=== PATIENT | female | born 1985 | race Caucasian/White ===

== ENCOUNTER 2018-08-14 08:20 | Emergency (ER) | payer OTHER ==
[~2018-08-14] VITALS: Ht 154.9 cm; Wt 64.0 kg
[~2018-08-14 08:20] MED LIST: IBUP-1542 PO; ONDA4TAB35 PO
[2018-08-14 08:23] VITALS: BP 121/76; PULSE 84; RESP 16; Ht 154.9 cm; Wt 64.0 kg
[2018-08-14] MEDS ORDERED: ONDANSETRON (ODT) 4 MG TAB ODT STA (08:56)
[2018-08-14] MEDS ORDERED: FAMOTIDINE 20 MG TAB PO ONE (09:00)
[2018-08-14] MEDS ORDERED: LIDOCAINE/MYLANTA 40 ML BTL PO ONE (09:00)
[2018-08-14] MEDS ORDERED: ESOM20CA PO (11:30)
[2018-08-14] MEDS ORDERED: SULF1TAB31 PO (11:30)
--- NOTE | 2018-08-14 11:41 | ERD ---
ER Documentation Chief Complaint Chief Complaint pt is bib family with c/o epigastric /abd pain starting last night HPI This is a 33-year-old female patient who presents to the emergency room with complaint of nausea without vomiting and epigastric pain since last night. States pain radiates to her back and into left chest. Denies alcohol use. History of GERD. No recent travel, no prolonged immobilization, no hormonal use. No chronic medical problems. ROS All systems reviewed and are negative except as per history of present illness. Medications Home Meds Active Scripts Sulfamethoxazole/Trimethoprim* (Bactrim Ds* Tablet) 1 Each Tablet, 1 TAB PO BID for cystitis for 3 Days, #6 TAB Prov:KATHARINE CABRERA NP 08/14/18 Esomeprazole Mag Trihydrate (Nexium) 20 Mg Capsule.dr, 20 MG PO BID for dypepsia for 30 Days, #60 CAP Prov:KATHARINE CABRERA NP 08/14/18 Ibuprofen* (Motrin*) 600 Mg Tab, 600 MG PO Q6H PRN for PAIN AND OR ELEVATED TEMP, #30 Prov:EDGAR CHACON NP 12/08/14 Ondansetron Hcl* (Zofran* ODT) 4 mg -ODT Tab.disper, 4 MG PO Q6 PRN for NAUSEA AND/OR VOMITING, #10 TAB Prov:EDGAR CHACON NP 12/08/14 Allergies Allergies: Coded Allergies: Penicillins (Verified Allergy, Unknown, 08/14/18) PMhx/Soc Medical and Surgical Hx: pt denies Surgical Hx Hx Alcohol Use: No Hx Substance Use: No Hx Tobacco Use: Yes (hookah) Smoking Status: Current some day smoker FmHx Family History: No diabetes, No coronary disease, No other Physical Exam Vitals Vital Signs Date Temp Pulse Resp B/P (MAP) Pulse Ox O2 O2 Flow FiO2 Time Delivery Rate 08/14/18 98.3 84 16 121/76 97 08:23 (91) Physical Exam Const: No acute distress Head: Atraumatic Eyes: Normal Conjunctiva, perrl ENT: Normal External Ears, Nose and Mouth. Pharynx pink, moist, no pe techiae, lesions Neck: Full range of motion. No meningismus. Lymphadenopathy Resp: Clear to auscultation bilaterally Cardio: Regular rate and rhythm, no murmurs Abd: Soft, non tender, non distended. Normal bowel sounds. Tender at epigastrium Skin: No petechiae or rashes Back: No midline or flank tenderness Ext: No cyanosis, or edema Neur: Awake and alert Psych: Normal Mood and Affect Result Diagram: 08/14/1817 08/14/18 0917 Results 24 hrs Laboratory Tests Test 08/14/18 09:17 08/14/18 09:18 White Blood Count 15.6 10^3/ul Red Blood Count 4.94 10^6/ul Hemoglobin 14.4 g/dl Hematocrit 42.5 % Mean Corpuscular Volume 86.0 fl Mean Corpuscular Hemoglobin 29.1 pg Mean Corpuscular Hemoglobin Concent 33.9 g/dl Red Cell Distribution Width 12.4 % Platelet Count 310 10^3/UL Mean Platelet Volume 10.2 fl Immature Granulocytes % 0.400 % Neutrophils % 82.2 % Lymphocytes % 11.9 % Monocytes % 4.4 % Eosinophils % 0.7 % Basophils % 0.4 % Nucleated Red Blood Cells % 0.0 /100WBC Immature Granulocytes # 0.070 10^3/ul Neutrophils # 12.8 10^3/ul Lymphocytes # 1.9 10^3/ul Monocytes # 0.7 10^3/ul Eosinophils # 0.1 10^3/ul Basophils # 0.1 10^3/ul Nucleated Red Blood Cells # 0.0 10^3/ul Sodium Level 141 mmol/L Potassium Level 3.8 mmol/L Chloride Level 105 mmol/L Carbon Dioxide Level 28 mmol/L Anion Gap 8 Blood Urea Nitrogen 16 mg/dl Creatinine 0.50 mg/dl Est Glomerular Filtrat Rate mL/min > 60 mL/min Glucose Level 98 mg/dl Calcium Level 9.4 mg/dl Total Bilirubin 0.5 mg/dl Direct Bilirubin 0.00 mg/dl Indirect Bilirubin 0.5 mg/dl Aspartate Amino Transf (AST/SGOT) 21 IU/L Alanine Aminotransferase (ALT/SGPT) 24 IU/L Alkaline Phosphatase 46 IU/L Troponin I < 0.012 ng/ml Total Protein 8.1 g/dl Albumin 4.5 g/dl Globulin 3.60 g/dl Albumin/Globulin Ratio 1.25 Lipase 37 U/L Bedside Urine pH (LAB) 8.5 Bedside Urine Protein (LAB) 1+ Bedside Urine Glucose (UA) Negative Bedside Urine Ketones (LAB) 1+ Bedside Urine Blood Negative Bedside Urine Nitrite (LAB) Negative Bedside Urine Leukocyte Esterase (L 1+ POC Beta HCG, Qualitative NEGATIVE Current Medications Medications Dose Sig/Cayla Start Time Status Last (Trade) Ordered Route PRN Stop Time Admin Dose Reason Admin 40 ml ONCE ONCE 08/14/18 DC 08/14/18 Miscellaneous PO 09:00 09:27 Medication 08/14/18 09:04 (Gi Cocktail (2)) Famotidine 20 mg ONCE ONCE 08/14/18 DC 08/14/18 (Pepcid) PO 09:00 09:26 08/14/18 09:04 Ondansetron 4 mg ONCE STAT 08/14/18 DC 08/14/18 HCl (Zofran ODT 08:56 09:18 Odt) 08/14/18 09:04 Procedures/MDM This is a 33-year-old female who presents to emergency room with epigastric pain. ED COURSE: The patient was stable throughout ED course. I kept the patient and/or family informed of laboratory and diagnostic imaging results throughout the ED course. EKG: Read by Dr. Farrell, attending physician. EKG shows normal sinus rhythm at a rate of 69 bpm. No arrhythmias, acute ST elevations or T wave changes were noted. MEDICATIONS GIVEN: GI cocktail, Zofran Patient tolerated medication well with no adverse reactions. Patient reported resolution of abdominal pain MDM: The patient presents with abdominal pain without definite explanation found on evaluation today. However, there are no signs of peritonitis or other life- threatening or serious etiology. The patient appears stable for discharge and has been instructed to return immediately if the symptoms worsen in any way, or in 8-12 hours if not improved for re-evaluation. There is low suspicion for pyelonephritis, vaginitis, STI, or interstitial cystitis due to absence of clinical findings that would support a diagnosis more serious than uncomplicated UTI. These diagnoses have been considered and excluded clinically. Nonetheless, it is understood by both the patient and provider that no clinical or diagnostic assessment can entirely exclude such diseases. Patient has been instructed on signs and symptoms of concern or with evolving condition with strict instructions to return to ED for reevaluation. DISPOSITION: The patient has been discharge home to follow-up with community physician. Departure Diagnosis: Primary Impression: Cystitis Additional Impression: Dyspepsia Condition: Stable Patient Instructions: Cystitis, Gerd (Adult) Referrals: COMMUNITY CLINICS YOU HAVE RECEIVED A MEDICAL SCREENING EXAM AND THE RESULTS INDICATE THAT YOU DO NOT HAVE A CONDITION THAT REQUIRES URGENT TREATMENT IN THE EMERGENCY DEPARTMENT. FURTHER EVALUATION AND TREATMENT OF YOUR CONDITION CAN WAIT UNTIL YOU ARE SEEN IN YOUR DOCTORS OFFICE WITHIN THE NEXT 1-2 DAYS. IT IS YOUR RESPONSIBILITY TO MAKE AN APPOINTMENT FOR FOLOW-UP CARE. IF YOU HAVE A PRIMARY DOCTOR --you should call your primary doctor and schedule an appointment IF YOU DO NOT HAVE A PRIMARY DOCTOR YOU CAN CALL OUR PHYSICIAN REFERRAL HOTLINE AT IF YOU CAN NOT AFFORD TO SEE A PHYSICIAN YOU CAN CHOSE FROM THE FOLLOWING [facility] [id number] [facility] [facility] [address] [facility] [facility] [address] [facility] [facility] [address] [facility]. [facility] [address] [facility]. [facility]. [address] Additional Instructions: Thank you very much for allowing us to participate in your care. Your health and safety is our top priority at [facility]. Call your primary care doctor TOMORROW for an appointment during the next 2-4 days and bring all the information and medications prescribed. Have prescriptions filled and follow precisely the directions on the label. If the symptoms get worse and your provider is unavailable, return to the Emergency Department immediately. COMPLETE ENTIRE COURSE OF ANTIBIOTIC, INCREASE FLUID TO 1-2 L/DAY FOLLOW-UP WITH YOUR PRIMARY DOCTOR KATHARINE CABRERA NP August 14, 2018 11:41
== END 2018-08-14 11:39 | disposition home or self-care (01) ==
LOC: FTE 08:20
DX: N30.90 Cystitis, unspecified without hematuria (principal); F17.210 Nicotine dependence, cigarettes, uncomplicated
CPT/HCPCS: 80053; 81003; 81025; 83690; 84484; 85025; 87086; 93005; Z7502; Z7610; 99283